=== PATIENT | female | born 1945 | race Two or more races ===

== ENCOUNTER 2024-06-08 19:39 | Emergency (ER) | payer OTHER ==
[~2024-06-08] VITALS: Ht 162.6 cm; Wt 59.0 kg
[2024-06-08] MEDS ORDERED: ZESTORETIC 20-1 EAC1 PO (19:47)
[2024-06-08] MEDS ORDERED: METFORMIN HCL500 M3 PO (19:48)
[2024-06-08] MEDS ORDERED: SIMVASTATIN5 MG PO (19:48)
[2024-06-08] MEDS ORDERED: CHILDREN'S CETIR5 MG PO (19:48)
[2024-06-08] MEDS ORDERED: ACID REDUCER20 M1 PO (19:48)
[2024-06-08] MEDS ORDERED: ORPHENADRINE CITRATE 30 MG/ML AMPUL IM STA (20:09)
[2024-06-08] MEDS ORDERED: KETOROLAC TROMETHAMINE 30 MG VIAL IM STA (20:09)
[2024-06-08] MEDS ORDERED: KETOROLAC TROMETHAMINE 60 MG VIAL IM ONE (20:15)
[2024-06-08 20:30] LABS: HEMATOCRIT 32.1 % (36.0-45.00); HEMOGLOBIN 11.2 g/dL (12.0-15.00); MEAN CORPUSCULAR HEMOGLOBIN 30.6 pg (27.00-32.0); MEAN CORPUSCULAR HGB CONC 34.8 g/dl (32.0-36.0); PLATELET COUNT 261 K/uL (150-450); RED BLOOD COUNT 3.65 M/uL (4.00-6.00); RED CELL DISTRIBUTION WIDTH 13.5 % (11.5-14.5)
[2024-06-08 20:59] LABS: ALBUMIN 3.9 gm/dL (3.4-5.0); BILIRUBIN TOTAL 0.44 mg/dL (0.3-1.2); CALCIUM 9.6 mg/dL (8.5-10.1); CREATININE SERUM 1.15 mg/dL (0.55-1.02); GFR 45.63; GLOBULINA 3.3 G/DL (2.4-3.5); POTASSIUM 4.19 mEq/L (3.5-5.1); TOTAL PROTEIN 7.2 gm/dL (6.4-8.2)
[2024-06-08 21:11] LABS: INR 1.05
[2024-06-08] MEDS ORDERED: RIVAROXABAN 15 MG TABLET PO STA (21:34)
[2024-06-08] MEDS ORDERED: XARELTO15 MG PO (21:49)
== END 2024-06-08 22:17 | disposition home or self-care (01) ==
LOC: ER 19:40 → EDBD 20:28 → ER 20:28
PROVIDERS: General Practice
DX: M79.605 Pain in left leg (principal); F32.89 Other specified depressive episodes; I10 Essential (primary) hypertension
CPT/HCPCS: 36415; 96372; 99283; J1885; J2360

== ENCOUNTER → 2024-06-09 | Emergency (ER) | payer OTHER ==
[~2024-06-09] MED LIST: ACID REDUCER20 M1 PO; CHILDREN'S CETIR5 MG PO; METFORMIN HCL500 M3 PO; SIMVASTATIN5 MG PO; XARELTO15 MG PO; ZESTORETIC 20-1 EAC1 PO
== END | disposition left against medical advice (07) ==
LOC: ER 10:46
DX: Z53.21 Procedure and treatment not carried out due to patient leaving prior to being seen by health care provider (principal)